=== PATIENT | male | born 1990 | race Caucasian/White ===

== ENCOUNTER 2020-03-17 09:23 | Emergency (ER) | payer SELFPAY ==
[~2020-03-17] VITALS: Ht 172.7 cm; Wt 79.4 kg
[2020-03-17 09:34] VITALS: BP 137/78
--- NOTE | 2020-03-17 09:41 | NUR ---
29/M BIB SELF C/O EPIGASTRIC PAIN, VOMITING X 3 DAYS.MED HX: DENIES. ABDOMEN SOFT, NO TENDERNESS. PATIENT STATES PAIN OF 9/10 AT THIS TIME.PATIENT POSITIONED FOR COMFORT; HOB ELEVATED; BEDRAILS UP X1; BED DOWN. ER MD MADE AWARE OF PT STATUS.
--- NOTE | 2020-03-17 09:41 | NUR ---
PT AMBULATED TO BED 3.
--- NOTE | 2020-03-17 10:15 | NUR ---
IV ESTABLISHED TO RIGHT AC 20 GAUGE, BLOOD DRAWN AND SENT TO LAB.
[2020-03-17] MEDS: NACL 0.9% 1,000 ML IV ONE (10:24)
[2020-03-17] MEDS: ONDANSETRON 4 MG/2 ML VIAL IVP ONE (10:24)
[2020-03-17] MEDS: KETOROLAC 30 MG/ML VIAL IVP ONE (10:25)
[2020-03-17] MEDS: FAMOTIDINE 20 MG/2 ML VIAL IVP ONE (10:25)
[2020-03-17 10:26] LABS: BASOPHILS % (AUTO) 0.3 % (0.0-2.0); EOSINOPHILS # (AUTO) 0.2 K/uL (0-0.4); EOSINOPHILS % (AUTO) 1.5 % (0.0-4.0); HEMATOCRIT 45.2 % (36-52); HEMOGLOBIN 15.2 g/dL (12.0-18.0); LYMPHOCYTES # (AUTO) 1.8 K/uL (2.0-11.5); LYMPHOCYTES % (AUTO) 14.2 % (20.5-51.1); MEAN CORPUSCULAR HEMOGLOBIN 29 pg (27-31); MEAN CORPUSCULAR HGB CONC 34 g/dL (33-37); MEAN CORPUSCULAR VOLUME 86.7 fL (80-94); MONOCYTES % (AUTO) 7.7 % (1.7-9.3); NEUTROPHILS # (AUTO) 9.8 K/uL (1.8-7.7); NEUTROPHILS % (AUTO) 76.3 % (42.2-75.2); PLATELET COUNT (AUTO) 238 K/uL (140-450); RED BLOOD CELL COUNT(AUTO) 5.21 MIL/uL (4.20-6.10); RED CELL DISTRIBUTION WIDTH 13.6 % (11.6-13.7); WHITE BLOOD COUNT (AUTO) 12.8 K/uL (4.8-10.8)
[2020-03-17 10:33] LABS: APPEARANCE,URINE HAZY (CLEAR); BILIRUBIN,URINE 1+ (NEGATIVE); BLOOD, URINE NEGATIVE (NEGATIVE); COLOR,URINE ORANGE (YELLOW); NITRITE, URINE NEGATIVE (NEGATIVE); UGLUCOSE NEGATIVE (NEGATIVE)
[2020-03-17 10:40] LABS: RBC,URINE 0-5 /HPF (0-5)
[2020-03-17 10:42] LABS: LEUKOCYTE ESTERASE ,URINE 1+ (NEGATIVE)
--- NOTE | 2020-03-17 10:57 | NUR ---
NADR, PAIN 0/10, PT DENIES NAUSEA
--- NOTE | 2020-03-17 10:58 | NUR ---
PENDING US RESULTS
[2020-03-17 11:07] LABS: ALBUMIN 3.6 g/dL (3.4-5.0); ANION GAP 11.9 (8-16); CARBON DIOXIDE 28.6 mmol/L (21-32); CREATININE 0.9 mg/dL (0.6-1.3); POTASSIUM 3.5 mmol/L (3.5-5.1); TOTAL BILIRUBIN 0.7 mg/dL (0.0-1.0)
[2020-03-17] MEDS ORDERED: cefTRIAXone 1,000 MG VIAL ONE (11:30)
[2020-03-17 12:12] VITALS: BP 125/76
--- NOTE | 2020-03-17 12:12 | NUR ---
Patient discharged with v/s stable. Written and verbal after care instructions given and explained REGARDING UTI AND AB PAIN. Patient alert, oriented and verbalized understanding of instructions. Ambulatory with steady gait. All questions addressed prior to discharge. ID band removed. Patient advised to follow up with PMD. Rx of ZOFRAN AND CEPALEXIN given. Patient educated on indication of medication including possible reaction and side effects. Opportunity to ask questions provided and answered.
[2020-03-20 06:17] LABS: CHLAMYDIA TRACHOMATIS AMP DNA Negative (Negative)
== END 2020-03-17 12:12 | disposition home or self-care (01) ==
LOC: MED 09:23
DX: N39.0 Urinary tract infection, site not specified (principal); F15.10 Other stimulant abuse, uncomplicated
CPT/HCPCS: 36415; 76705; 80053; 81001; 83690; 85025; 87086; 96361; 96365; 96375; 99284; J0696; J1885; J2405; J3490; J7030; Q0092

== ENCOUNTER 2020-03-20 05:04 | Emergency (ER) | payer MEDICAID ==
[~2020-03-20] VITALS: Ht 172.7 cm; Wt 79.8 kg
--- NOTE | 2020-03-20 05:12 | NUR ---
CALLED PT BACK FROM LOBBY. NO RESPONSE.
[2020-03-20 05:17] VITALS: BP 136/78
--- NOTE | 2020-03-20 05:25 | NUR ---
PT AMBULATED TO ER BED 1 W/ STEADY GAIT.
--- NOTE | 2020-03-20 05:28 | NUR ---
29 Y/O MALE PRESENTED TO ED C/O RUQ ABD PAIN X 4 DAYS. PT STATES HE WAS HERE RECENTLY FOR THE SAME C/O BUT WAS UNABLE TO FILL HIS RX. PT STATES THE PAIN WOKE HIM FROM HIS SLEEP. PT RATES PAIN 10/10 , SHARP AND CONSTANT. ABD SOFT , FLAT AND NONTENDER TO TOUCH. ACTIVE BOWEL SOUNDS IN ALL QUADRANTS. PT DENIES N/V/D/BODY ACHES, FEVER AND CHILLS. PT RESTING IN BED, LOCKED AND IN LOWEST POSITION, HOB ELEVATED, SIDE RAIL X1. PT PROVIDED BLANKET FOR COMFORT. VSS. NO ACUTE DISTRESS NOTED AT THIS TIME. PMH: DENIES NKA
[2020-03-20] MEDS ORDERED: ONDANSETRON 4 MG/2 ML VIAL IVP ONE (05:40)
[2020-03-20] MEDS ORDERED: NACL 0.9% 1,000 ML IV ONE (05:40)
[2020-03-20] MEDS ORDERED: MORPHINE SULFATE 4 MG/ML SYR IVP ONE (05:40)
--- NOTE | 2020-03-20 06:05 | NUR ---
LAB AT BEDSIDE.
[2020-03-20 06:12] LABS: BASOPHILS % (AUTO) 0.4 % (0.0-2.0); EOSINOPHILS # (AUTO) 0.3 K/uL (0-0.4); EOSINOPHILS % (AUTO) 2.1 % (0.0-4.0); HEMATOCRIT 43.4 % (36-52); HEMOGLOBIN 14.4 g/dL (12.0-18.0); LYMPHOCYTES # (AUTO) 2.1 K/uL (2.0-11.5); LYMPHOCYTES % (AUTO) 16.5 % (20.5-51.1); MEAN CORPUSCULAR HEMOGLOBIN 29 pg (27-31); MEAN CORPUSCULAR HGB CONC 33 g/dL (33-37); MEAN CORPUSCULAR VOLUME 86.6 fL (80-94); MONOCYTES # (AUTO) 1.2 K/uL (0.8-1.0); MONOCYTES % (AUTO) 9.2 % (1.7-9.3); NEUTROPHILS # (AUTO) 9.2 K/uL (1.8-7.7); NEUTROPHILS % (AUTO) 71.8 % (42.2-75.2); PLATELET COUNT (AUTO) 239 K/uL (140-450); RED BLOOD CELL COUNT(AUTO) 5.02 MIL/uL (4.20-6.10); RED CELL DISTRIBUTION WIDTH 13.5 % (11.6-13.7); WHITE BLOOD COUNT (AUTO) 12.8 K/uL (4.8-10.8)
[2020-03-20 06:27] LABS: ALBUMIN 3.5 g/dL (3.4-5.0); ANION GAP 11.4 (8-16); POTASSIUM 3.4 mmol/L (3.5-5.1); TOTAL BILIRUBIN 0.6 mg/dL (0.0-1.0)
--- NOTE | 2020-03-20 06:29 | NUR ---
URINAL PUT AT BEDSIDE FOR PT ENCOURAGEMENT TO PROVIDE URINE SAMPLE.
--- NOTE | 2020-03-20 06:40 | NUR ---
PT STATES UNABLE TO PROVIDE URINE SAMPLE AT THIS TIME. ERMD MADE AWARE. PER DR. AMERICO ROSE TO WAIT FOR URINE.
--- NOTE | 2020-03-20 07:11 | NUR ---
PT TAKEN TO CT VIA [facility] .
--- NOTE | 2020-03-20 07:16 | NUR ---
REPORT GIVEN TO IRENA DAVALOS FOR TRANSFER OF CARE.
[2020-03-20] MEDS ORDERED: AZITHROMYCIN 250 MG TAB PO ONE (07:30)
--- NOTE | 2020-03-20 07:41 | NUR ---
CHLAMYDIA/GONORROEAE results received from lab. Gonorroeae result positive. Results shown to Dr. Farah. No new orders received. Copy of results placed in discrepancy folder.
--- NOTE | 2020-03-20 07:42 | NUR ---
PT AMBULATED TO RESTROOM. A/OX4,VSS,EUPNIC.
[2020-03-20 08:41] LABS: APPEARANCE,URINE HAZY (CLEAR); BILIRUBIN,URINE NEGATIVE (NEGATIVE); BLOOD, URINE NEGATIVE (NEGATIVE); COLOR,URINE YELLOW (YELLOW); LEUKOCYTE ESTERASE ,URINE NEGATIVE (NEGATIVE); NITRITE, URINE NEGATIVE (NEGATIVE); PH,URINE 6.5 (5.0-9.0); UGLUCOSE NEGATIVE (NEGATIVE)
[2020-03-20 08:57] VITALS: BP 122/80
--- NOTE | 2020-03-20 08:57 | NUR ---
Patient discharged with v/s stable. Written and verbal after care instructions given and explained. Patient alert, oriented and verbalized understanding of instructions. Ambulatory with steady gait. All questions addressed prior to discharge. ID band removed. Patient advised to follow up with PMD. Rx of FLAGYL,ZOFRAN,CIPRO given. Patient educated on indication of medication including possible reaction and side effects. Opportunity to ask questions provided and answered.
== END 2020-03-20 08:57 | disposition home or self-care (01) ==
LOC: MED 05:04
DX: K52.9 Noninfective gastroenteritis and colitis, unspecified (principal); A54.9 Gonococcal infection, unspecified
CPT/HCPCS: 36415; 74177; 80053; 81003; 83690; 85025; 96361; 96374; 96375; 99285; J2270; J2405; Q9967